=== PATIENT | female | born 1945 | race Caucasian/White ===

== ENCOUNTER 2019-12-13 16:23 | Observation (INO) | payer MEDICARE ==
[~2019-12-13] VITALS: Ht 157.5 cm; Wt 122.0 kg
[~2019-12-13 16:23] MED LIST: ACYCLOVIR400 MG PO; ADULT LOW DOSE81 MG PO; ALBUTEROL SULF8.5 GM INH; ATENOLOL100 MG PO; BACLOFEN10 MG PO; CETIRIZINE-PSE1 EACH PO; CLOPIDOGREL75 MG PO; DITROPAN XL15 MG PO; ISOSORBIDE MONO60 M1 PO; LEVAQUIN750 MG PO; LIDOCAINE PATCH 5% TOP; LISINOPRIL20 MG PO; LORTAB 10-5001 EACH PO; METFORMIN HCL500 MG PO; MULTIVITAMINS1 EAC7 PO; NITROGLYCERIN0.4 MG SL; OMEGA 3-6-9 11200 MG PO; RANITIDINE HCL150 MG PO; SERTRALINE HCL100 MG PO; TAMIFLU75 MG PO; TRAZODONE HCL50 MG PO; VYTORIN 10-801 EACH PO; WELLBUTRIN XL300 MG PO; [UNRECOGNIZED DRUG - OTHER] TOP
--- OUTSIDE RECORDS SUMMARY | 2019-12-13 16:27 | XMS REPORT | Clinical Summary ---
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 Active atenolol (TENORMIN) 100 Take 100 mg 0 MG tablet by mouth daily. Active atorvastatin (LIPITOR) 80 Take 80 mg by 0 MG tablet mouth daily. Active baclofen (LIORESAL) 10 MG Take 10 mg by 0 tablet mouth 3 (three) times daily. Active budesonide-formoterol Inhale 2 0 (SYMBICORT) 160-4.5 puffs by mcg/actuation inhaler mouth via inhaler 2 (two) times daily. Active buPROPion (WELLBUTRIN XL) Take 300 mg 0 300 MG 24 hr tablet by mouth daily. Active cetirizine (ZYRTEC) 10 MG Take 10 mg by 0 tablet mouth daily. Active Missing or Non-Formulary Voltaren 1% 0 Medication gel transdermal . Active fluocinonide (LIDEX) 0.05 Apply 0 % cream topically daily. Active isosorbide mononitrate Take 60 mg by 0 (IMDUR) 60 MG 24 hr mouth daily. tablet Active lisinopril Take 20 mg by 0 (PRINIVIL,ZESTRIL) 20 MG mouth daily. tablet Active metFORMIN (GLUCOPHAGE) Take 500 mg 0 500 MG tablet by mouth 2 (two) times daily with breakfast and dinner. Active ranitidine (ZANTAC) 150 Take 150 mg 0 MG tablet by mouth 2 (two) times daily. Active sertraline (ZOLOFT) 100 Take 100 mg 0 MG tablet by mouth daily. Active albuterol HFA (VENTOLIN Inhale 1 puff 0 HFA) 90 mcg/actuation by mouth via inhaler inhaler every 6 (six) hours as needed for Wheezing. Active aspirin 81 MG EC tablet Take 81 mg by 0 mouth daily. Active clopidogrel (PLAVIX) 75 Take 75 mg by 0 mg tablet mouth daily. Active co-enzyme Q-10 30 mg Take 30 mg by 0 capsule mouth 3 (three) times daily. Active HYDROcodone-acetaminophen Take 1 tablet 0 (NORCO 10-325) 10-325 mg by mouth per tablet every 6 (six) hours as needed for Pain. Active multivitamin per tablet Take 1 tablet 0 by mouth daily. Active omega-3 fatty acids-fish Take 2 g by 0 oil 340-1,000 mg Cap per mouth 2 (two) capsule times daily. Active temazepam (RESTORIL) 15 Take 15 mg by 0 mg capsule mouth every night as needed for Sleep. Active Problems Problem Noted Date LEE ANN (stress urinary incontinence, female) 12/24/2015 Social History Date Tobacco Use Types Packs/Day Years Used Former Smoker 1 36 Comments: quit 1997 Alcohol Use Drinks/Week oz/Week Comments No Sex Assigned at Date Recorded Not on file Industry Job Start Date Occupation Not on file Not on file Not on file Travel End Travel History Travel Start No recent travel history available. Last Filed Vital Signs Not on file Plan of Treatment Health Maintenance Due Date Last Done Comments INFLUENZA VACCINE 04/09/2018 Implants Device Identifier Shelf Expiration Date Model / Serial / L ot Implanted Type Area Manufactur er 03/23/2018 [id number] / / [id number] Sling Subfascial [facility] N/A: Bladder [employer] [id number] - [id number] SYS Implanted: Qty: 1 on 12/24/2015 by Ray Heck MD Results Not on fileafter 12/12/2018 Insurance Payer Benefit Subscriber ID Type Phone Address Plan / Group [facility] xxxxxxxxxxx MEDICARE ADV [id number] Advance Directives For more information, please contact: [phone] [place] [address] Date Inactivated Comments Code Status Date Activated 12/25/2015 1:43 PM Full Code 12/24/2015 6:36 PM This code status was determined by: Patient
[2019-12-13] MEDS ORDERED: SODIUM CHLORIDE 0.9% 1000ML 1,000 ML IV SCH (17:00)
--- NOTE | 2019-12-13 17:02 | Emergency Department Note ---
History of Present Illnes History of Present Illness Chief Complaint: diarrhea and fever for a few days History of Present Illness This is a 74 year old female . 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 Any updates have been documented here. Past Medical History Past Medical History: Diabetes, COPD, DC Other Medical History: astham Past Surgical History: Appendectomy Other Surgery: CARDIAC STENT X5 Social History Smoking Cessation: Former smoker Alcohol Use: Social Any Illegal Drug Use: No TB Exposure/Symptoms: No Physically hurt or threatened: No Other Last Tetanus: UNKNOWN Any Pre-Existing Lines (PICC,: No Is patient up to date on immun: No Review of Systems Review of Systems Constitutional: no symptoms EENTM: other (dry mouth) Cardiovascular: no symptoms Respiratory: no symptoms Gastrointestinal: other (cramping ) Genitourinary: no symptoms Musculoskeletal: no symptoms Neurological: no symptoms Psychological: no symptoms Endocrine: no symptoms Hematological/Lymphatic: no symptoms Review of other systems All other systems reviewed and negative. Physical Exam Related Data Allergies: Coded Allergies: No Known Allergies (Unverified , 06/30/13) Vital signs reviewed: Yes Physical Exam CONSTITUTIONAL Constitutional: well-developed, well-nourished HENT HENT: normocephalic, atraumatic, oropharynx clear/moist, oropharynx normal EYES Eyes: PERRL, conjunctivae normal NECK Neck: ROM normal, supple PULMONARY Pulmonary: effort normal, breath sounds normal CARDIOVASCULAR Cardiovascular: regular rhythm, heart sounds normal, intact distal pulses, capillary refill normal GASTROINTESTINAL Abdominal: soft, bowel sounds normal, tender (diffuse wthout guarding or rebound) GENITOURINARY Genitourinary: exam deferred SKIN Skin: warm, dry MUSCULOSKELETAL Musculoskeletal: ROM normal, edema NEUROLOGICAL Neurological: alert, oriented x 3, no gross motor or sensory deficits PSYCHOLOGICAL Psychological: mood/affect normal, behavior normal, thought content normal, judgement normal Results Laboratory Laboratory plt 117 mildly decreased ow wnlelect bun 19/ creat 1.9 no old creatine for comparison cl 92 low lac 1.22 wnl pt wnl U/A sg 1.025 with small blood and prot 30mg/dl. repeat plts 96 still decreased Lab results reviewed: Yes Imaging Imaging results reviewed: Yes Impressions thickening of the descending and sigmoid colon cw colitis. bibasilar ground glass opacities lower lung doran Critical Care Time Subsequent provider I assumed direction of critical care for this patient from another provider of my specialty. Assessment & Plan Assessment & Plan Final Impression: (1) DEHYDRATION (2) LEFT SIDED COLITIS WITHOUT COMPLICATIONS Assessment & Plan admit to Dr Jada Edwards case discussed in detail Depart Disposition: ADMITTED Home Meds Reported Medications Oseltamivir Phosphate (TAMIFLU) 75 Mg Cap, 75 MG PO BID 07/03/13 Levofloxacin (LEVAQUIN) 750 Mg Tablet, MG PO DAILY 07/03/13 Sertraline Hcl (SERTRALINE HCL) 100 Mg Tablet, 100 MG PO DAILY 06/30/13 Ranitidine Hcl (RANITIDINE HCL) 150 Mg Tablet, 150 MG PO BID 06/30/13 Oxybutynin Chloride (DITROPAN XL) 15 Mg Tab.er.24, 15 MG PO DAILY 06/30/13 Fish Oil/Fat No.8/Hrb Comb.137 (OMEGA 3-6-9 1,200 MG SOFTGEL) 1,200 Mg Capsule, 4 CAP PO DAILY 06/30/13 Nitroglycerin (NITROGLYCERIN) 0.4 Mg Tab.subl, 0.4 MG SL PRN 06/30/13 Multivitamin (MULTIVITAMINS) 1 Each Capsule, 1 TAB PO DAILY 06/30/13 Metformin Hcl (METFORMIN HCL) 500 Mg Tablet, 500 MG PO DAILY 06/30/13 Lisinopril (PRINAVIL / ZESTRIL) 20 Mg Tablet, 20 MG PO DAILY 06/30/13 [Lidocaine Patch 5%] No Conflict Check, 1 PATCH.BWK TOP EVERY 24 HOURS 06/30/13 Trazodone Hcl (TRAZODONE HCL) 50 Mg Tablet, 50 MG PO TID 06/30/13 Isosorbide Mononitrate (ISOSORBIDE MONONITRATE) 60 Mg Tab.er.24h, 60 MG PO EVERY MORNING 06/30/13 Hydrocodone Bit/Acetaminophen (LORTAB 10-500 TABLET) 1 Each Tablet, 1 TAB PO EVERY 6 HRS PRN 06/30/13 [Lidex E] No Conflict Check, 1 APPLIC TOP BID PRN 06/30/13 Ezetimibe/Simvastatin (VYTORIN 10-80 MG TABLET) 1 Each Tablet, 1 TAB PO DAILY 06/30/13 Clopidogrel Bisulfate (CLOPIDOGREL) 75 Mg Tablet, 75 MG PO DAILY 06/30/13 Cetirizine Hcl/Pseudoephedrine (CETIRIZINE-PSE ER 5-120 MG TAB) 1 Each Tab.er.12h, 1 TAB PO DAILY 06/30/13 Bupropion Hcl (WELLBUTRIN XL) 300 Mg Tab.er.24h, 300 MG PO DAILY 06/30/13 Baclofen (BACLOFEN) 10 Mg Tablet, 10 MG PO TID 06/30/13 Atenolol (ATENOLOL) 100 Mg Tablet, 100 MG PO BEDTIME 06/30/13 Aspirin (ADULT LOW DOSE ASPIRIN EC) 81 Mg Tablet.dr, 81 MG PO DAILY 06/30/13 Albuterol Sulfate (ALBUTEROL SULFATE HFA) 8.5 Gm Hfa.aer.ad, 180 MCG INH EVERY 6 HOURS PRN 06/30/13 Acyclovir (ACYCLOVIR) 400 Mg Tablet, 400 MG PO DAILY 06/30/13 KYRA TILLEY MD Dec 13, 2019 17:02
[2019-12-13] MEDS ORDERED: SODIUM CHLORIDE 0.9% 1000ML 1,000 ML ONE (17:13)
[2019-12-13] MEDS ORDERED: ONDANSETRON HCL INJ 2MG/ML 2ML 2 MG/ML VIAL IV ONE (17:15)
[2019-12-13] MEDS ORDERED: ONDANSETRON HCL INJ 2MG/ML 2ML 2 MG/ML VIAL ONE (17:36)
--- NOTE | 2019-12-13 18:03 | NUR ---
second CBC completed
--- NOTE | 2019-12-13 18:39 | Diagnostic Imaging Report ---
EXAM: CT Abdomen and Pelvis WITHOUT contrast INDICATION: Abdominal pain and diarrhea. COMPARISON: None. TECHNIQUE: Abdomen and pelvis were scanned utilizing a multidetector helical scanner from the lung base to the pubic symphysis without administration of IV contrast. Absence of intravenous contrast decreases sensitivity for detection of focal lesions and vascular pathology. Coronal and sagittal reformations were obtained. Routine protocol was performed. IV CONTRAST: None. ORAL CONTRAST: Water RADIATION DOSE: Total DLP: 1219.99 mGy*cm Estimated effective dose: (DLP x 0.015 x size factor) mSv COMPLICATIONS: None FINDINGS: Examination limited due to the lack of contrast. LINES and TUBES: None. LOWER THORAX: Patchy groundglass densities in the lung bases, most markedly involving the lingula and left lower lobe posteriorly as seen on axial images 6 series 2 is a nonspecific finding, however, may reflect pneumonitis in the proper clinical setting. Multivessel coronary arteries calcification. HEPATOBILIARY: No focal hepatic lesions. No biliary ductal dilation. GALLBLADDER: No radio-opaque stones or sludge. No wall thickening. SPLEEN: No splenomegaly. PANCREAS: No focal masses or ductal dilatation. ADRENALS: No adrenal nodules KIDNEYS/URETERS: No hydronephrosis. No cystic or solid mass lesions. No stones. GI TRACT: No bowel obstruction. Mild diffuse wall thickening of the descending and sigmoid colon, well seen on images 66 through 72, associated with mild surrounding fat stranding, suggestive of mild descending colitis. Appendix is not clearly identified, however, no evidence of appendicitis. PELVIC ORGANS/BLADDER: The uterus is absent. LYMPH NODES: No lymphadenopathy. VESSELS: There is severe atherosclerotic disease in the aorta and major arterial branches. Calcification of a left renal hilar arteries. PERITONEUM / RETROPERITONEUM: Trace volume of free fluid within the pelvis. BONES: There are degenerative changes in the lumbar spine. SOFT TISSUES: Small fat-containing umbilical hernia. IMPRESSION: 1. Findings consistent with descending and sigmoid colitis. Further characterization limited to the lack of contrast. 2. Bibasilar patchy groundglass density is a nonspecific finding, however, may reflect pneumonitis or atypical infection in the proper clinical setting. Signed by: Dr. Rai Lucia M.D. on 12/13/2019 6:36 PM
--- NOTE | 2019-12-13 18:56 | NUR ---
when pt is lying down pts spo2 in 88/89% Dr Salguero notified. pt sit up in sitting position and spo2 95%. pt denies SOB or CP
--- NOTE | 2019-12-13 18:57 | NUR ---
Report given to Patsy EDWARDS
[2019-12-13] MEDS ORDERED: DEXTROSE 50% SYRINGE 50 ML IV PRN (19:00)
[2019-12-13] MEDS ORDERED: ONDANSETRON HCL INJ 2MG/ML 2ML 2 MG/ML VIAL IV PRN (19:00)
[2019-12-13] MEDS ORDERED: LEVOFLOXACIN 500MG/D5W 100ML IV SCH (19:00)
[2019-12-13] MEDS ORDERED: ALBUTEROL SULFATE HFA 8GM INHALATION AEROSOL INH PRN (19:00)
[2019-12-13] MEDS ORDERED: LEVOFLOXACIN 500MG/D5W 100ML 100 ML IV ONE ×2 (19:00→19:22)
--- OUTSIDE RECORDS SUMMARY | 2019-12-13 19:15 | XMS REPORT | Continuity of Care Document ---
Author Author [facility] t Organization [facility] Address 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 Social History Social Habit Start Date Stop Date Quantity Comments Source Sex Assigned At [facility] Cigarettes smoked current (pack per day) - Reported 00:00:00 2015-12-25 00:00:00 [facility] Cigarette pack-years 2015-12-25 00:00:00 2015-12-25 00:00:00 [facility] Tobacco Comment 2015-12-18 00:00:00 2015-12-18 00:00:00 quit 1998 [facility] Smoking Status Start Date Stop Date Source Former smoker 2015-12-25 00:00:00 2015-12-25 00:00:00 [facility] Medications Ordered Medication Name Filled Medication Name Start Date Stop Da te Current Medication? Ordering Clinician Indication Dosage Frequency Signature (SIG) Comments Components Source Missing or Non-Formulary Medication 2015-12-18 12:48:26 Yes Voltaren 1% gel transdermal . [facility] fluocinonide (LIDEX) 0.05 % cream 2015-12-18 12:48:26 Yes QD Apply topically daily. [facility] isosorbide mononitrate (IMDUR) 60 MG 24 hr tablet 2015-12-18 12:48:26 Yes 60mg QD Take 60 mg by mouth daily. [facility] lisinopril (PRINIVIL,ZESTRIL) 20 MG tablet 2015-12-18 12:48:26 Yes 20mg QD Take 20 mg by mouth daily. [facility] metFORMIN (GLUCOPHAGE) 500 MG tablet 2015-12-18 12:48:26 Ye s 500mg Take 500 mg by mouth 2 (two) times daily with breakfast and dinner. [facility] ranitidine (ZANTAC) 150 MG tablet 2015-12-18 12:48:26 Yes 150mg Q.5D Take 150 mg by mouth 2 (two) times daily. [facility] sertraline (ZOLOFT) 100 MG tablet 2015-12-18 12:48:26 Yes 100mg QD Take 100 mg by mouth daily. [facility] albuterol HFA (VENTOLIN HFA) 90 mcg/actuation inhaler 2015-12-18 12:48:26 Yes 1{puff} Inhale 1 puff b y mouth via inhaler every 6 (six) hours as needed for Wheezing. [facility] aspirin 81 MG EC tablet 2015-12-18 12:48:26 Yes 81mg QD Take 81 mg by mouth daily. [facility] clopidogrel (PLAVIX) 75 mg tablet 2015-12-18 12:48:26 Yes 75mg QD Take 75 mg by mouth daily. [facility] co-enzyme Q-10 30 mg capsule 2015-12-18 12:48:26 Yes 30mg Q.[id number] Take 30 mg by mouth 3 (three) times daily. [facility] HYDROcodone-acetaminophen (NORCO 10-325) 10-325 mg per table t 2015-12-18 12:48:26 Yes 1{tbl} Take 1 tab let by mouth every 6 (six) hours as needed for Pain. [facility] multivitamin per tablet 2015-12-18 12:48:26 Yes 1{tbl} QD Take 1 tablet by mouth daily. [facility] omega-3 fatty acids-fish oil 340-1,000 mg Cap per capsule 2015-12-18 12:48:26 Yes 2g Q.5D Take 2 g by mouth 2 (two) times daily. [facility] temazepam (RESTORIL) 15 mg capsule 2015-12-18 12:48:26 Yes 15mg Take 15 mg by mouth every night as needed for Sleep. [facility] acyclovir (ZOVIRAX) 400 MG tablet 2015-12-18 12:48:25 Yes 400mg Take 400 mg by mouth 3 (three) times daily as needed for Outbreaks. [facility] atenolol (TENORMIN) 100 MG tablet 2015-12-18 12:48:25 Yes 100mg QD Take 100 mg by mouth daily. [facility] atorvastatin (LIPITOR) 80 MG tablet 2015-12-18 12:48:25 Yes 80mg QD Take 80 mg by mouth daily. [facility] baclofen (LIORESAL) 10 MG tablet 2015-12-18 12:48:25 Yes 10mg Q.[id number] Take 10 mg by mouth 3 (three) times daily. [facility] budesonide-formoterol (SYMBICORT) 160-4.5 mcg/actuation inha ler 2015-12-18 12:48:25 Yes 2{puff} Q.5D Inhale 2 p uffs by mouth via inhaler 2 (two) times daily. [facility] buPROPion (WELLBUTRIN XL) 300 MG 24 hr tablet 2015-12-18 12:48:2 5 Yes 300mg QD Take 300 mg by mouth daily. [facility] cetirizine (ZYRTEC) 10 MG tablet 2015-12-18 12:48:25 Yes 10mg QD Take 10 mg by mouth daily. [facility] Procedures This patient has no known procedures. Plan of Care Planned Activity Planned Date Details Comments Source Future Scheduled Test 2018-04-09 00:00:00 INFLUENZA VACCINE [code = IN[facility]INE[facility] Test Description Test Time Test Comments Results Result Comments Source CT ABD/PEL WO CONTRAST-HOPD 2019-12-13 18:24:00 [id number] [place] [address] Patient Name: TALITA BECKFORD MR #: [id number] : 1945 Age/Sex: 74/F Req #: [id number] Adm Physician: Ordered by: KYRA TILLEY MD Report #: [id number] Location: [facility] Room/Bed: Procedure: HOPD/CT ABD/PEL WO CONTRAST-HOPD Exam Date: 12/13/19 Exam Time: 1744 REPORT STATUS: Signed EXAM: CT Abdomen and Pelvis WITHOUT contrast INDICATION: Abdominal pain and diarrhea. COMPARISON: None. TECHNIQUE: Abdomen and pelvis were scanned utilizing a multidetector helical scanner from the lung base to the pubic symphysis without admin istration of IV contrast. Absence of intravenous contrast decreases sensitivity for detection of focal lesions and vascular pathology. Coronal and sagittal reformations were obtained. Routine protocol was performed. IV CONTRAST: None. ORAL CONTRAST: Water RADIATION DOSE: Total DLP: 1219.99 mGy*cm Estimated effective dose: (DLP x 0.015 x size factor) mSv COMPLICATIONS: None FINDINGS: Examination limited due to the lack of contrast. LINES and TUBES: None. LOWER THORAX: Patchy groundglass densities in the lung bases, most markedly involving the lingula and left lower lobe posteriorly as seen on axial images 6 series 2 is a nonspecific finding, however, may reflect pneumonitis in the proper clinical setting. Multivessel coronary arteries calcification. HEPATOBILIARY: No focal hepatic lesions. No biliary ductal dilation. GALLBLADDER: No radio-opaque stones or sludge. No wall thickening. SPLEEN: No splenomegaly. PANCREAS: No focal masses or ductal dilatation. ADRENALS: No adrenal nodules KIDNEYS/URETERS: No hydronephrosis. No cystic or solid mass lesions. No stones. GI TRACT: No bowel obstruction. Mild diffuse wall thickening of the descending and sigmoid colon, well seen on images 66 through 72, associated with mild surrounding fat stranding, suggestive of mild descending colitis. Appendix is not clearly identified, however, no evidence of appendicitis. PELVIC ORGANS/BLADDER: The uterus is absent. LYMPH NODES: No lymphadenopathy. VESSELS: There is severe atherosclerotic disease in the aorta and major arterial branches. Calcification of a left renal hilar arteries. PERITONEUM / RETROPERITONEUM: Trace volume of free fluid within the pelvis. BONES: There are degenerative changes in the lumbar spine. SOFT TISSUES: Small fat-containing umbilical hernia. IMPRESSION: 1. Findings consistent with descending and sigmoid colitis. Further characterization limited to the lack of contrast. 2. Bibasilar patchy groundglass density is a nonspecific finding, however, may reflect pneumonitis or atypical infection in the proper clinical setting. Signed by: Dr. Rai Rothman M.D. on 12/13/2019 6:36 PM Dictated By: DARREN ROTHMAN MD, MD 35 Transcribed By: FIONA on 12/13/191835 COPY TO: KYRA TILLEY MD
--- OUTSIDE RECORDS SUMMARY | 2019-12-13 19:15 | XMS REPORT | Clinical Summary ---
Author Author ZOE [facility] Address Unknown Phone Unavailable Care Team Providers Care Manager Drug Name Role Phone Sharpless PCP Allergies No [...] ot Implanted Type Area Manufactur er 03/23/2018 [id number] / / [id number] Sling Subfascial [facility] N/A: Bladder [employer] [id number] - [id number] SYS Implanted: Qty: 1 on 12/24/2015 by Ray Heck MD Results Not on fileafter 12/12/2018 Insurance Payer Benefit Subscriber ID Type Phone Address Plan / Group [facility] xxxxxxxxxxx MEDICARE ADV [phone] [id number] [address] [facility] [place] (Home) [place] [phone] Advance Directives For more information, please contact: [phone] [place] [address] Date Inactivated Comments Code Status Date Activated 12/25/2015 1:43 PM Full Code 12/24/2015 6:36 PM This code status was determined by: Patient
--- NOTE | 2019-12-13 19:28 | NUR ---
IVSL DC'D WITHOUT DIFF. NO REDNESS/SWELLING/BLEEDING FROM SITE. CATH INTACT. PT TOLERATED WELL
--- NOTE | 2019-12-13 19:30 | NUR ---
PT SIGNED AMA FORM, AND VERBALLY STATES SHE UNDERSTANDS. PT STATES SHE FEELS MUCH BETTER NOW AFTER GETTING FLUIDS.
--- NOTE | 2019-12-13 19:30 | NUR ---
DRESSED IN PPE TO OBTAIN COVID TEST, START LEVAQUIN. EXPLAINED TO PT WHAT I WAS DOING, PT REFUSED TEST/LEVAQUIN/ADMIT TO HOSP. STATING "I WOULD RATHER GO HOME WITH PRESCRIPTIONS, I DO NOT WANT TO BE ADMITTED". INFORMED AND IN TO SPEAK WITH PT. PT CONT TO REFUSE ANY FURTHER CARE AND WILLING TO SIGN AMA
[2019-12-13] MEDS ORDERED: DOXYCYCLINE HY100 MG PO (19:43)
[2019-12-13] MEDS ORDERED: ZOFRAN4 MG SL (19:45)
[2019-12-13 20:20] VITALS: BP 141/68
[2019-12-13] MEDS ORDERED: INSULIN REGULAR, HUMAN 100 UNIT/1 ML 3ML VIAL SQ SCH (21:00)
[2019-12-14] MEDS ORDERED: METRONIDAZOLE 500MG/NS 100ML IV SCH
== END 2019-12-13 20:00 | disposition left against medical advice (07) ==
LOC: FSED 16:23 → ERHOLD 18:51
PROVIDERS: ADMIT Internal Medicine; ATTEND Internal Medicine
DX: K52.9 Noninfective gastroenteritis and colitis, unspecified (principal); E11.9 Type 2 diabetes mellitus without complications; J44.9 Chronic obstructive pulmonary disease, unspecified; I25.2 Old myocardial infarction; E86.0 Dehydration
CPT/HCPCS: 74176; 80048; 81003; 83880; 85025; 85610; 87040; 96374; 99284; G0378; J1817; J1956; J2405; J7030

== ENCOUNTER 2025-02-17 12:56 | Emergency (ER) | payer MEDICARE ==
[~2025-02-17] VITALS: Ht 156.2 cm; Wt 59.2 kg
[~2025-02-17 12:56] MED LIST changes: +DOXYCYCLINE HY100 MG PO; +ZOFRAN4 MG SL
[2025-02-17 13:00] VITALS: TEMP 97.9
[2025-02-17 14:30] VITALS: PULSE 70; RESP 20
[2025-02-17] MEDS: BACITRACIN ZINC 0.9GM TP ONE (15:51)
[2025-02-17 15:52] VITALS: BP 167/71; PULSE 71; RESP 19; O2SAT 100
== END 2025-02-17 15:50 | disposition left against medical advice (07) ==
LOC: FSED 13:17
DX: S00.83XA Contusion of other part of head, initial encounter (principal); S51.811A Laceration without foreign body of right forearm, initial encounter; S51.812A Laceration without foreign body of left forearm, initial encounter; S81.811A Laceration without foreign body, right lower leg, initial encounter; R55 Syncope and collapse; W18.39XA Other fall on same level, initial encounter; Y92.89 Other specified places as the place of occurrence of the external cause; E11.9 Type 2 diabetes mellitus without complications; J44.9 Chronic obstructive pulmonary disease, unspecified; R94.31 Abnormal electrocardiogram [ECG] [EKG]; I25.2 Old myocardial infarction; Z95.5 Presence of coronary angioplasty implant and graft
CPT/HCPCS: 70450; 70486; 80053; 81003; 84484; 85025; 93005; 99283